=== PATIENT | female | born 1950 | race African-American/Black ===

== ENCOUNTER 2018-07-16 12:23 | Emergency (ER) | payer MEDICARE, OTHER ==
[~2018-07-16] VITALS: Ht 162.6 cm; Wt 80.0 kg
[2018-07-16 12:27] VITALS: BP 190/100
== END 2018-07-16 13:32 | disposition left against medical advice (07) ==
LOC: ER 12:23
DX: R06.02 Shortness of breath (principal); Z53.21 Procedure and treatment not carried out due to patient leaving prior to being seen by health care provider